=== PATIENT | female | born 1925 | race Caucasian/White ===

== ENCOUNTER 2017-03-20 17:19 | Emergency (ER) | payer MEDICARE ==
[~2017-03-20] VITALS: Ht 162.6 cm; Wt 60.0 kg
[~2017-03-20 17:19] MED LIST: ACET1TAB12 PO; AMIT25TA9 PO; AMLO2.5T45 PO; ATOR20TA65 PO; BISA-81 PO; DOCU-138 PO; FERR-63 PO; HYDR10SY11 PO; Hydralazine Hcl PO; SULF1TAB48 PO
[2017-03-20] MEDS ORDERED: ASPIRIN 325MG EC TABLET PO ONE (17:45)
[2017-03-20 18:21] LABS: INR 1.1; PROTHROMBIN TIME 11.4 sec
[2017-03-20 18:24] LABS: CARBON DIOXIDE 20 mEq/L (21-32); CHLORIDE 109 mEq/L (98-107)
[2017-03-20 18:25] LABS: HEMATOCRIT. 27.5 % (36.0-48.0); HEMOGLOBIN. 9.4 g/dL (12.0-16.0); MEAN CORPUSCULAR HEMOGLOBIN 30.1 pg (28.0-32.0); MEAN CORPUSCULAR VOLUME 88.4 fL (81.0-99.0); MEAN PLATELET VOLUME 7.6 fl (7.4-10.4); PLATELET 139 x1000/uL (130-400); RED BLOOD CELL COUNT 3.11 mill/uL (4.2-5.4); RED CELL DISTRIBUTION WIDTH 14.6 % (11.6-14.6)
[2017-03-20 18:31] LABS: TROPONIN I < 0.02 ng/mL (0.00-0.04)
[2017-03-20] MEDS ORDERED: SODIUM CHLORIDE 0.9% 500 ML IV ONE (18:49)
[2017-03-20 19:05] LABS: PLATELET ESTIMATE SLIGHTLY DECREASED
[2017-03-20 20:07] VITALS: BP 123/66
== END 2017-03-20 20:11 | disposition home or self-care (01) ==
LOC: ER 17:42 → CANBEDREQ 22:32
DX: E86.0 Dehydration (principal); R07.9 Chest pain, unspecified; R19.7 Diarrhea, unspecified; R11.2 Nausea with vomiting, unspecified; I10 Essential (primary) hypertension; E11.9 Type 2 diabetes mellitus without complications; Z88.8 Allergy status to other drugs, medicaments and biological substances
CPT/HCPCS: 36415; 71010; 80053; 83880; 84484; 85025; 85610; 93005; 96360; 99285; J7040; J7030